=== PATIENT | female | born 1945 | race Two or more races ===

== ENCOUNTER → 2024-09-17 09:57 | Outpatient (REF) | payer MEDICARE, BC, SELFPAY ==
[2024-09-17 10:43] LABS: Hematocrit 36.7 % (37.0-47.0); Hemoglobin 11.7 g/dL (12.0-16.0); Mean Corp Hgb Conc. 31.9 g/dL (33.0-37.0); Mean Corpuscular Volume 95.1 fL (81.0-99.0); Platelet Count 151 10^3/uL (130-400); Red Cell Dist. Width 15.9 % (11.5-14.5)
[2024-09-17 10:53] LABS: ALT (SGPT) 13 U/L (0-35); AST (SGOT) 19 U/L (14-36); Albumin 4.1 g/dl (3.5-5.0); Alkaline Phosphatase 70 U/L (38-126); Blood Urea Nitrogen 19 mg/dl (7-17); Calcium 9.4 mg/dl (8.4-10.2); Carbon Dioxide 25 mmol/L (22-30); Chloride 106 mmol/L (98-107); Glucose 207 mg/dl (70-99); HDL Cholesterol 72 mg/dl; LDL Cholesterol, Calculated 80 mg/dl; Magnesium 2.1 mg/dl (1.6-2.3); Potassium 4.3 mmol/L (3.5-5.1); Sodium 137 mmol/L (135-145); Total Protein 7.4 g/dl (6.3-8.2); Very Low Density Lipoprotein 18 mg/dl (0-30); eGFR > 60.00
[2024-09-17 11:17] LABS: Absolute Neutrophils -Man Diff 1.9 10^3/uL (1.4-6.5)
[2024-09-17 11:18] LABS: Normal RBC Morphology Yes; Platelets Checked Yes; Total Cells Counted 100
[2024-09-17 11:24] LABS: Vitamin D, 25-OH*** 27.7 ng/mL (30-80)
[2024-09-17 11:38] LABS: TSH 1.07 uIU/ml (0.47-4.68)
[2024-09-17 11:57] LABS: Vitamin B12 460 pg/ml (239-931)
[2024-09-17 12:17] LABS: Glycohemoglobin (HgbA1c) 11.5 % (4.0-5.6)
[2024-09-18 11:13] LABS: Syphilis/T. pallidum Ab Reflex Negative (Negative)
== END ==
LOC: OLABMERCHI 09:57
PROVIDERS: ATTENDING PHYSICIAN Hospitalist; OTHER PHYSICIAN Nurse Practitioner Primary Care
DX: R41.3 Other amnesia (principal); F41.1 Generalized anxiety disorder; E78.2 Mixed hyperlipidemia; Z13.0 Encounter for screening for diseases of the blood and blood-forming organs and certain disorders involving the immune mechanism; D58.2 Other hemoglobinopathies; E61.2 Magnesium deficiency; R60.0 Localized edema; E11.69 Type 2 diabetes mellitus with other specified complication; E55.9 Vitamin D deficiency, unspecified; I10 Essential (primary) hypertension
CPT/HCPCS: 36415; 80053; 80061; 82306; 82607; 83036; 83735; 83880; 84439; 84443; 85025; 85652; 86780

== ENCOUNTER → 2024-09-18 17:36 | Outpatient (REF) | payer MEDICARE, BC, SELFPAY | LOC: OLABMERCHI 17:36 | PROVIDERS: ATTENDING PHYSICIAN Nurse Practitioner Primary Care | DX: I10 Essential (primary) hypertension (principal); F41.1 Generalized anxiety disorder; E78.2 Mixed hyperlipidemia; E11.69 Type 2 diabetes mellitus with other specified complication; E55.9 Vitamin D deficiency, unspecified | CPT/HCPCS: 36415; 82570; 84156 ==

== ENCOUNTER 2024-12-13 13:23 | Emergency (ER) | payer MEDICARE, BC, SELFPAY ==
[2024-12-13 13:29] LABS: Glucose - Point of Care 308 mg/dl (70-99)
[2024-12-13 13:30] VITALS: BP 136/94
--- NOTE | 2024-12-13 13:30 | ED.GENMED ---
History of Present Illness
General
Chief Complaint: Blood Sugar Problem
Time Seen by Provider: 12/13/24 13:30
History of Present Illness
History of Present Illness:
FOCUSED PAST MEDICAL HISTORY
- Dementia, diabetes
REVIEW OF OLD RECORDS
- I reviewed the medication list from [facility]; med list includes glimepiride Jardiance and metformin and pioglitazone
Note:
CHIEF COMPLAINT(S)
Elevated blood glucose levels.
HISTORY OF PRESENT ILLNESS
The patient is an 79-year-old female with a known history of diabetes, who presents with elevated blood glucose levels. Laboratory results reveal a serum osmolality of 303 and a glucose level of 283. Her white blood cell count, hemoglobin levels,
bicarbonate, and creatinine are within normal limits. She reports no current symptoms and denies any medication use for diabetes. The patient is mildly aware of her surroundings, correctly identifying the hospital as [facility] and stating
that it is December. She notes no pain or swelling in her legs but mentions a belief that her left leg issues are related to diabetes. The patient appears somewhat pale on examination.
PHYSICAL EXAM
General: Alert with mild cognitive deficits, no acute distress.
Skin: Pale, warm, dry.
Head: Normocephalic, atraumatic.
Neck: Supple, trachea midline.
Eye Ears, nose, mouth, and throat: Oral mucosa moist.
Cardiovascular: Normal peripheral perfusion, no edema.
Respiratory: Respirations are non-labored.
Gastrointestinal: Abdomen nondistended.
Back: Normal range of motion, normal alignment.
Musculoskeletal: Normal range of motion, normal strength.
Neurological: The patient has some evidence of dementia with mild cognitive deficits but she is awake and alert and knows that she is here related to her high sugar and knows that it is December and that she is at [facility]
Psychiatric: Cooperative, appropriate mood and affect.
PROBLEM LIST
Acute: Elevated blood glucose levels, mild cognitive deficits.
Chronic: Diabetes.
PLAN
Await additional test results for further evaluation. Monitor glucose levels closely. Discuss diabetic management and potential medication options upon reviewing all test outcomes.
DIFFERENTIAL DIAGNOSIS
The Differential Diagnosis includes, in no particular order, and is not limited to:
1. Hyperglycemia
2. Dementia or cognitive impairment
3. Diabetic complications
4. Electrolyte imbalance
5. Stroke
6. Hypoglycemia
7. Dehydration
8. Infection
9. Renal dysfunction
10. Medication-induced hyperglycemia
RADIOLOGY
-
EKG
-
LABS
-
UPDATE
-
Course
Orders/Labs/Results
Orders:
Orders
12/13/24 13:31
0.9% Sodium Chloride 500 ml [Nss] 500 ml IV BOLUS
12/13/24 13:42
B-Hydroxybutyrate Urgent
CMP [Comprehensive Metabolic Panel] Urgent
Complete Blood Count/With Diff Urgent
Serum Osmolality Urgent
Abnormal Lab Results
12/13/24 12/13/24
13:28 13:42
MCHC 31.8 L g/dL
(33.0-37.0)
RDW 17.2 H %
(11.5-14.5)
BUN 18 H mg/dl
(7-17)
Glucose 283 H mg/dl
(70-99)
Serum Osmolality 303 H mOsm/kg
(275-300)
POC Glucose 308 H mg/dl
(70-99)
12/13/24 13:42
12/13/24 13:42
Vital Signs
Initial and Last Documented VS:
Initial Vital Signs
Temp Pulse Resp Pulse Ox
36.8 C 69 18 95
12/13/24 13:27 12/13/24 13:27 12/13/24 13:27 12/13/24 13:27
Last Documented Vital Signs
Temp Pulse Resp Pulse Ox
36.8 C 69 18 95
12/13/24 13:27 12/13/24 13:27 12/13/24 13:27 12/13/24 13:31
*Pulse Oximetry
SaO2: 95
Oxygen Mode of Delivery: Room air
ED Attending Note
-
Portions of this chart may have been created with voice recognition software.� Occasional wrong word or��sound alike� substitutions may have occurred due to the inherent limitations of voice recognition software.
Discharge Plan
Departure
Referrals:
Carson Phipps MD [Family Provider, Internal Medicine]
Interventions
Interventions:
*Risk Screen - Suicide Last Done: 12/13/24 13:33
*General Assessment Last Done: 12/13/24 13:33
*Neglect/Abuse Screening Last Done: 12/13/24 13:41
*ED- Fall Risk Assessment Last Done: 12/13/24 13:33
*ED COVID-19 Vaccine History Last Done: 12/13/24 13:33
*ED Influenza Vaccine History Last Done: 12/13/24 13:33
ED- Neurological Assessment Last Done: 12/13/24 13:59
Discharge Date and Time
Print Language: BELARUSIAN
[2024-12-13] MEDS: NSS 500 IV (13:51)
[2024-12-13 13:58] LABS: Hematocrit 40.6 % (37.0-47.0); Hemoglobin 12.9 g/dL (12.0-16.0); Mean Corp Hgb Conc. 31.8 g/dL (33.0-37.0); Mean Corpuscular Volume 93.5 fL (81.0-99.0); Platelet Count 161 10^3/uL (130-400); Red Cell Dist. Width 17.2 % (11.5-14.5)
[2024-12-13 14:00] VITALS: BP 130/60
[2024-12-13 14:11] LABS: ALT (SGPT) 15 U/L (0-35); AST (SGOT) 21 U/L (14-36); Albumin 4.6 g/dl (3.5-5.0); Alkaline Phosphatase 77 U/L (38-126); Blood Urea Nitrogen 18 mg/dl (7-17); Calcium 9.4 mg/dl (8.4-10.2); Carbon Dioxide 25 mmol/L (22-30); Chloride 100 mmol/L (98-107); Estimated Creatinine Clearance 49 ml/min; Glucose 283 mg/dl (70-99); Potassium 4.5 mmol/L (3.5-5.1); Sodium 136 mmol/L (135-145); Total Protein 7.9 g/dl (6.3-8.2); eGFR > 60.00
[2024-12-13] MEDS: NOVOLIN R 4 UNITS SC (14:38)
[2024-12-13 15:26] LABS: Glucose - Point of Care 163 mg/dl (70-99)
--- NOTE | 2024-12-13 15:39 | ED.GENMED ---
History of Present Illness
General
Chief Complaint: Blood Sugar Problem
Time Seen by Provider: 12/13/24 13:30
History of Present Illness
History of Present Illness:
FOCUSED PAST MEDICAL HISTORY
- Dementia
REVIEW OF OLD RECORDS
- I reviewed the med list which includes oral diabetic meds but no insulin
Note:
CHIEF COMPLAINT(S)
Elevated blood glucose levels.
HISTORY OF PRESENT ILLNESS
The patient is an 79-year-old female with a known history of diabetes, who presents with elevated blood glucose levels. Laboratory results reveal a serum osmolality of 303 and a glucose level of 283. Her white blood cell count, hemoglobin levels,
bicarbonate, and creatinine are within normal limits. She reports no current symptoms and denies any medication use for diabetes. The patient is mildly aware of her surroundings, correctly identifying the hospital as [facility] and stating
that it is December. She notes no pain or swelling in her legs but mentions a belief that her left leg issues are related to diabetes. The patient appears somewhat pale on examination.
PHYSICAL EXAM
General: Alert with mild cognitive deficits, no acute distress.
Skin: Pale, warm, dry.
Head: Normocephalic, atraumatic.
Neck: Supple, trachea midline.
Eye Ears, nose, mouth, and throat: Oral mucosa moist.
Cardiovascular: Normal peripheral perfusion, no edema.
Respiratory: Respirations are non-labored.
Gastrointestinal: Abdomen nondistended.
Back: Normal range of motion, normal alignment.
Musculoskeletal: Normal range of motion, normal strength.
Neurological: Alert and oriented to person, place, and time, mild cognitive deficits.
Psychiatric: Cooperative, appropriate mood and affect.
PROBLEM LIST
Acute: Elevated blood glucose levels, mild cognitive deficits.
Chronic: Diabetes.
PLAN
Await additional test results for further evaluation. Monitor glucose levels closely. Discuss diabetic management and potential medication options upon reviewing all test outcomes.
DIFFERENTIAL DIAGNOSIS
The Differential Diagnosis includes, in no particular order, and is not limited to:
1. Hyperglycemia
2. Dementia or cognitive impairment
3. Diabetic complications
4. Electrolyte imbalance
5. Stroke
6. Hypoglycemia
7. Dehydration
8. Infection
9. Renal dysfunction
10. Medication-induced hyperglycemia
Disposition:
SUMMARY OF ENCOUNTER
The patient, an 79-year-old female with a history of diabetes, was evaluated for elevated blood glucose levels in the emergency department. Her metabolic workup was relatively unremarkable, showing hyperglycemia without evidence of diabetic
ketoacidosis (DKA) or hyperosmolar hyperglycemic nonketotic syndrome (HHNK). She had no specific complaints during her visit. Subcutaneous insulin was administered, which reduced her blood sugar to 168 mg/dL.
DISPOSITION
Discharge back to her facility where she will receive closer nursing care.
ASSESSMENT
The patient was assessed to have elevated blood glucose levels without acute complications such as DKA or HHNK.
EMERGENCY TREATMENTS ADMINISTERED
Subcutaneous insulin.
PLAN
Monitor blood glucose levels closely at the facility. Continue with diabetic management and ensure appropriate follow-up care is coordinated.
INDEPENDENT REVIEW OF LABS AND INTERPRETATION OF TESTS
My independent review of serum osmolality is within normal limits.
My independent review of glucose indicates hyperglycemia.
PATIENT EDUCATION AND COUNSELING
The patient and her son were informed about the current status of her blood glucose and instructed on the importance of ongoing monitoring. Discussed signs of hypoglycemia and hyperglycemia to be aware of.
MEDICATION RECONCILIATION
Administered one dose of subcutaneous insulin to manage blood glucose levels.
MEDICAL DECISION MAKING
-Complexity of Data Reviewed: Chronic conditions affecting care include diabetes.
-Data:
Category 1
Reviewed her blood glucose and serum osmolality lab results.
Category 3
Informed discussion with the patients son regarding home care and monitoring plan.
DIAGNOSIS
1. Hyperglycemia, unspecified (ICD-10: E16.2)
2. Diabetes mellitus without complication (ICD-10: E11.9)
-
Phy Exam
Physical Exam
Physical Exam:
See HPI
Course
Orders/Labs/Results
Orders:
Orders
12/13/24 13:31
0.9% Sodium Chloride 500 ml [Nss] 500 ml IV BOLUS
12/13/24 13:42
B-Hydroxybutyrate Urgent
CMP [Comprehensive Metabolic Panel] Urgent
Complete Blood Count/With Diff Urgent
Serum Osmolality Urgent
12/13/24 14:16
Insulin Human Regular [Novolin R] 4 units SC NOW STA
Abnormal Lab Results
12/13/24 12/13/24 12/13/24
13:28 13:42 15:19
MCHC 31.8 L g/dL
(33.0-37.0)
RDW 17.2 H %
(11.5-14.5)
BUN 18 H mg/dl
(7-17)
Glucose 283 H mg/dl
(70-99)
Serum Osmolality 303 H mOsm/kg
(275-300)
POC Glucose 308 H mg/dl 163 H mg/dl
(70-99) (70-99)
12/13/24 13:42
12/13/24 13:42
Vital Signs
Initial and Last Documented VS:
Initial Vital Signs
Temp Pulse Resp Pulse Ox
36.8 C 69 18 95
12/13/24 13:27 12/13/24 13:27 12/13/24 13:27 12/13/24 13:27
Last Documented Vital Signs
Temp Pulse Resp BP Pulse Ox
36.8 C 68 20 130/60 93
12/13/24 13:27 12/13/24 14:15 12/13/24 14:00 12/13/24 14:00 12/13/24 14:15
*Pulse Oximetry
SaO2: 93
Oxygen Mode of Delivery: Room air
Patient hypoxic: no
*Critical Care Note
Total Time (30-74mins, 75-104mins- exclusive of procedures): Not Applicable
ED Attending Note
-
Portions of this chart may have been created with voice recognition software.� Occasional wrong word or��sound alike� substitutions may have occurred due to the inherent limitations of voice recognition software.
Discharge Plan
Departure
Patient Disposition: Home (Routine Discharge)
Date of Disposition: 12/13/24
Time of Disposition: 15:31
Patient with high blood pressure during this ER visit?: Yes
Discharge Problem:
Hyperglycemia
Instructions: High blood sugar in adults - ED (DC), BLOOD PRESSURE
Referrals:
Carson Phipps MD [Family Provider, Internal Medicine]
Activity Restrictions/Additional Instructions:
After treatment, your blood sugar is now down to 163. There is no evidence for diabetic ketoacidosis. Before treatment, your blood sugar was 283 here. We gave you 4 units of subcutaneous NovoLog insulin. Follow-up with your doctors. Return if
worse or other concerns.
Interventions
Interventions:
*Risk Screen - Suicide Last Done: 12/13/24 13:33
*General Assessment Last Done: 12/13/24 13:33
*Neglect/Abuse Screening Last Done: 12/13/24 13:41
*ED- Fall Risk Assessment Last Done: 12/13/24 13:33
*ED COVID-19 Vaccine History Last Done: 12/13/24 13:33
*ED Influenza Vaccine History Last Done: 12/13/24 13:33
ED- Neurological Assessment Last Done: 12/13/24 13:59
Discharge Date and Time
Print Language: TURKMEN
[2024-12-13 16:01] LABS: Absolute Neutrophils -Man Diff 2.5 10^3/uL (1.4-6.5); Platelets Checked Yes
[2024-12-13 16:02] LABS: Normal RBC Morphology Yes; Total Cells Counted 100
== END 2024-12-13 15:56 | disposition home or self-care (01) ==
LOC: EMR 13:23
PROVIDERS: EMERGENCY PHYSICIAN Emergency Medicine; FAMILY PHYSICIAN Internal Medicine Geriatric Medicine
DX: E11.65 Type 2 diabetes mellitus with hyperglycemia (principal); F03.90 Unspecified dementia, unspecified severity, without behavioral disturbance, psychotic disturbance, mood disturbance, and anxiety
CPT/HCPCS: 99284; 96372; 80053; 82010; 82962; 83930; 85025

== ENCOUNTER → 2024-12-17 10:59 | Outpatient (REF) | payer MEDICARE, BC, SELFPAY ==
[2024-12-17 13:10] LABS: Glycohemoglobin (HgbA1c) 10.7 % (4.0-5.9)
[2024-12-17 13:37] LABS: ALT (SGPT) 12 U/L (0-35); AST (SGOT) 21 U/L (14-36); Albumin 3.6 g/dl (3.5-5.0); Alkaline Phosphatase 56 U/L (38-126); Blood Urea Nitrogen 21 mg/dl (7-17); Calcium 8.7 mg/dl (8.4-10.2); Carbon Dioxide 23 mmol/L (22-30); Chloride 106 mmol/L (98-107); Glucose 200 mg/dl (70-99); Potassium 4.7 mmol/L (3.5-5.1); Sodium 137 mmol/L (135-145); Total Protein 6.5 g/dl (6.3-8.2); eGFR > 60.00
== END ==
LOC: OLABMERCHI 10:59
PROVIDERS: ATTENDING PHYSICIAN Internal Medicine Geriatric Medicine
DX: I10 Essential (primary) hypertension (principal); E78.2 Mixed hyperlipidemia; E11.69 Type 2 diabetes mellitus with other specified complication; E55.9 Vitamin D deficiency, unspecified; R73.9 Hyperglycemia, unspecified
CPT/HCPCS: 36415; 80053; 83036; 84681